=== PATIENT | female | born 1995 | race Caucasian/White ===

== ENCOUNTER 2024-11-15 10:00 | Emergency (ER) | payer BC, SELFPAY ==
[2024-11-15 10:05] VITALS: BP 135/94
[2024-11-15 11:40] VITALS: BMI 31.2
--- NOTE | 2024-11-15 11:41 | ED.GENMED ---
History of Present Illness
General
Chief Complaint: Back Pain
Source: patient
Exam Limitations: none
Time Seen by Provider: 11/15/24 10:41
Nursing documentation reviewed up to this point in time: agreed with
History of Present Illness
History of Present Illness:
Patient is a 29-year-old female approximately 27 weeks complains of pain to left lower back/posterior hip region. She reports pain has been there for the past 5 days worse over the past 2 days. It is worse with movement twisting turning.
She denies any injury or trauma. She denies any flank pain. Denies any abdominal pain. Denies any urinary frequency urgency. Denies any vaginal bleeding. Denies any abdominal pain. She did call her [employer] and has appointment tomorrow however
because of pain came to the ER today. It was worse this morning when she woke up. She denies any associated fever chills or illness. She is scheduled for ultrasound in the next several days. She has had normal ultrasounds and unremarkable
thus far.
Phy Exam
General Physical Exam
General Presentation: no apparent distress
General age: appears stated age
General Skin: warm and dry
General Habitus: normal
General Mental: alert
General Hydration: appears well hydrated
Gastrointestinal Exam
Gastrointestinal Exam: non tender, soft and other (Gravid abdomen)
Neurological Exam
Neurological Exam: alert and oriented x3
Musculoskeletal Exam
Musculoskeletal Exam: other (+ mild tenderness to left lower back/over iliac crest ; no erythema to back )
Skin Exam
Skin Exam: normal color and warm/dry
Psychiatric Exam
Psychiatric Exam: normal mood/affect
Course
Orders/Labs/Results
Orders:
Orders
11/15/24 12:22
Acetaminophen [Tylenol] 650 mg PO NOW STA
11/15/24 12:30
Heart Tones ONCE
Vital Signs
Initial and Last Documented VS:
Initial Vital Signs
Temp Pulse Resp BP Pulse Ox
98.5 F 89 20 135/94 96
11/15/24 10:11/15/24 10:11/15/24 10:11/15/24 10:11/15/24 10:05
Last Documented Vital Signs
Temp Pulse Resp BP Pulse Ox
98.5 F 89 20 135/94 96
11/15/24 10:05 11/15/24 10:11/15/24 10:11/15/24 10:05 11/15/24 11:44
MDM/Problems Addressed
Differential Diagnosis Includes:
not limited to: Sciatica, muscle bone pain
MDM/Problems Addressed:
Symptoms are likely back pain related to muscular changes no injury no flank tenderness pain is directly over the iliac crest area patient has no complaints of abdominal pain or vaginal bleeding. Patient has no radiation of pain sciatica.
She has no UTI symptoms.
encouraged patient to keep her appointment tomorrow with [employer] so they can follow this. Other than Tylenol I did discuss the patient to switch to ice and hold off on heat.
*Pulse Oximetry
SaO2: 96
Oxygen Mode of Delivery: Room air
Patient hypoxic: no
*Critical Care Note
Total Time (30-74mins, 75-104mins- exclusive of procedures): Not Applicable
ED Attending Note
-
Portions of this chart may have been created with voice recognition software.� Occasional wrong word or��sound alike� substitutions may have occurred due to the inherent limitations of voice recognition software.
Discharge Plan
Departure
Patient Disposition: Home (Routine Discharge)
Date of Disposition: 11/15/24
Time of Disposition: 12:26
Patient with high blood pressure during this ER visit?: Yes
Condition: Fair
Covid-19: Not Applicable
Discharge Problem:
muscle and bone pain
Instructions: Muscle, joint, and bone pain (DC)
Referrals:
Debi Rosado PA-C [Family Provider, Family Practice]
Activity Restrictions/Additional Instructions:
As discussed follow-up with your [employer] tomorrow as scheduled. Switch from heat to ice. Apply ice multiple times throughout the day for 20 minutes at a time. You may continue taking Tylenol. Return for any worsening of symptoms.
Interventions
Interventions:
*Risk Screen - Suicide Last Done: 11/15/24 10:05
*General Assessment Last Done: 11/15/24 10:05
*Neglect/Abuse Screening Last Done: 11/15/24 10:05
ED-Musculoskeletal Assessment Last Done: 11/15/24 11:40
Discharge Date and Time
Print Language: SETSWANA
[2024-11-15] MEDS: TYLENOL 650 MG PO (12:29)
== END 2024-11-15 13:04 | disposition home or self-care (01) ==
LOC: EMR 10:00
PROVIDERS: EMERGENCY PHYSICIAN Emergency Medicine; FAMILY PHYSICIAN Physician Assistant
DX: O99.891 Other specified diseases and conditions complicating pregnancy (principal); M89.8X9 Other specified disorders of bone, unspecified site; Z3A.27 27 weeks gestation of pregnancy
CPT/HCPCS: 99282

== ENCOUNTER 2025-02-16 19:36 | Inpatient (IN) | payer BC, SELFPAY ==
[2025-02-16 19:58] VITALS: BP 119/86; BMI 33.0
[2025-02-16 20:25] LABS: Hematocrit 33.2 % (37.0-47.0); Hemoglobin 11.6 g/dL (12.0-16.0); Mean Corp Hgb Conc. 34.9 g/dL (33.0-37.0); Mean Corpuscular Volume 84.1 fL (81.0-99.0); Nucleated Red Blood Cells % 0 %; Platelet Count 164 10^3/uL (130-400); Red Cell Dist. Width 12.9 % (11.5-14.5)
[2025-02-16] MEDS: CYTOTEC 25 MICROGRAM VAG (20:30)
[2025-02-16 21:16] LABS: Hepatitis B Surface Antigen Negative (Negative)
[2025-02-17] MEDS: CYTOTEC 50 MICROGRAM PO ×4 (00:35→13:03)
[2025-02-17] MEDS: PRENATAL PLUS 1 TABLET PO (08:59)
[2025-02-17] MEDS: BUSPAR 10 MG PO ×2 (08:59→19:58)
[2025-02-17] MEDS: CYTOTEC PO ×2 (17:19→20:03)
[2025-02-17] MEDS: LR 1000 IV (18:47)
[2025-02-17] MEDS: PITOCIN 30 UNITS/NSS 500 ML IV (18:57)
[2025-02-17] MEDS: MORPHINE SULFATE 2 MG IV (22:58)
[2025-02-18] MEDS: LR 1000 IV ×4 (01:00→19:45)
[2025-02-18] MEDS: MORPHINE SULFATE 2 MG IV ×2 (01:10→03:49)
[2025-02-18] MEDS: FENTANYL/BUPIVACAINE 100 EPIDURAL ×2 (05:08→14:03)
[2025-02-18] MEDS: SUBLIMAZE 100 MCG EPIDURAL (05:08)
[2025-02-18] MEDS: BUSPAR 10 MG PO ×2 (11:30→21:00)
[2025-02-18] MEDS: PRENATAL PLUS PO (11:30)
[2025-02-18] MEDS: TYLENOL 975 MG PO (18:00)
[2025-02-18] MEDS: ANCEF 10 IV (18:01)
[2025-02-18] MEDS: BICITRA 30 ML PO (18:02)
[2025-02-18] MEDS: ZITHROMAX INFUSION 250 IV (18:03)
[2025-02-18 18:51] LABS: Cord ABG B.E. - POC -4.7 mmol/L; Cord ABG HCO3 - POC 21 mmol/L; Cord ABG O2 Sat % - POC 35.4 %; Cord ABG pCO2 - POC 42 mmHg; Cord ABG pH - POC 7.32; Cord ABG pO2 - POC 23 mmHg
[2025-02-18 18:56] LABS: Cord VBG B.E. - POC -3.3 mmol/L; Cord VBG HCO3 - POC 22 mmol/L; Cord VBG O2 Sat % - POC 67.5 %; Cord VBG pCO2 - POC 39 mmHg; Cord VBG pH - POC 7.36; Cord VBG pO2 - POC 36 mmHg
[2025-02-18] MEDS: PITOCIN 30 UNITS/NSS 500 ML IV (19:15)
[2025-02-18] MEDS: COLACE PO (20:00)
[2025-02-19] MEDS: TORADOL 15 MG IV ×4 (00:32→18:22)
[2025-02-19 04:49] LABS: Hematocrit 31.5 % (37.0-47.0); Hemoglobin 10.3 g/dL (12.0-16.0); Mean Corp Hgb Conc. 32.7 g/dL (33.0-37.0); Mean Corpuscular Volume 87.5 fL (81.0-99.0); Platelet Count 145 10^3/uL (130-400); Red Cell Dist. Width 13.1 % (11.5-14.5)
[2025-02-19] MEDS: PRENATAL PLUS 1 TABLET PO (08:06)
[2025-02-19] MEDS: COLACE 100 MG PO ×2 (08:06→20:44)
[2025-02-19] MEDS: BUSPAR 10 MG PO ×2 (08:06→20:44)
--- NOTE | 2025-02-19 16:52 | W.PN.ANS.POP ---
Anesthesia Post Operative
- Anesthesia Post Op Note
Vital Signs Stable-See Nursing Note: Yes
Airway Patent: Yes
Adequate Pain Control: Yes
Change in Mental Status: No
Current Postoperative Nausea & Vomiting: No
Anesthesia Complications: No
General Anesthetic Recall: No
Unplanned Admission: No
Post Op Hydration Adequate: Yes
[2025-02-19] MEDS: MYLICON 80 MG PO (17:43)
[2025-02-19] MEDS: ROXICODONE 5 MG PO (20:51)
[2025-02-20] MEDS: ROXICODONE 5 MG PO (02:25)
[2025-02-20] MEDS: BUSPAR 10 MG PO ×2 (08:00→20:07)
[2025-02-20] MEDS: PRENATAL PLUS 1 TABLET PO (08:00)
[2025-02-20] MEDS: COLACE 100 MG PO ×2 (08:00→20:07)
[2025-02-20] MEDS: MYLICON 80 MG PO ×2 (09:16→20:11)
[2025-02-20] MEDS: MOTRIN 600 MG PO ×2 (13:47→20:11)
[2025-02-20] MEDS: TYLENOL 650 MG PO ×2 (13:47→18:05)
[2025-02-21] MEDS: TYLENOL 650 MG PO ×2 (00:48→08:23)
[2025-02-21] MEDS: MOTRIN 600 MG PO (04:55)
[2025-02-21] MEDS: BUSPAR 10 MG PO (08:23)
[2025-02-21] MEDS: COLACE 100 MG PO (08:23)
[2025-02-21] MEDS: PRENATAL PLUS 1 TABLET PO (08:23)
[2025-02-21 12:28] LABS: Syphilis/T. pallidum Ab Reflex Negative (Negative)
== END 2025-02-21 11:22 | disposition home or self-care (01) | DRG 786 ==
LOC: LDRP 19:36
PROVIDERS: Obstetrics & Gynecology; ADMITTING PHYSICIAN Student in an Organized Health Care Education/Training Program; FAMILY PHYSICIAN Physician Assistant
PROC: 3E0P7VZ Introduction of Hormone into Female Reproductive, Via Natural or Artificial Opening (ICD-10-PCS; 2025-02-16)
PROC: 3E033VJ Introduction of Other Hormone into Peripheral Vein, Percutaneous Approach (ICD-10-PCS; 2025-02-16)
PROC: 10907ZC Drainage of Amniotic Fluid, Therapeutic from Products of Conception, Via Natural or Artificial Opening (ICD-10-PCS; 2025-02-18)
PROC: 10D00Z1 Extraction of Products of Conception, Low, Open Approach (ICD-10-PCS; 2025-02-18)
PROC: 6A550ZT Pheresis of Cord Blood Stem Cells, Single (ICD-10-PCS; 2025-02-18)
DX: O48.0 Post-term pregnancy (principal); O41.1230 Chorioamnionitis, third trimester, not applicable or unspecified; Z37.0 Single live birth; Z3A.40 40 weeks gestation of pregnancy; O76 Abnormality in fetal heart rate and rhythm complicating labor and delivery; O99.214 Obesity complicating childbirth; O99.344 Other mental disorders complicating childbirth; F41.9 Anxiety disorder, unspecified; R00.0 Tachycardia, unspecified; O99.892 Other specified diseases and conditions complicating childbirth; Z82.49 Family history of ischemic heart disease and other diseases of the circulatory system
CPT/HCPCS: 85025; 85027; 86780; 86850; 86900; 86901; 87340; 88307